=== PATIENT | female | born 1995 | race Caucasian/White ===

== ENCOUNTER 2016-04-01 19:21 | Emergency (ER) | payer OTHER ==
[~2016-04-01] VITALS: Ht 172.7 cm; Wt 49.9 kg
[2016-04-01] MEDS ORDERED: IBUPROFEN 600 MG TABLET PO ONE ×2 (21:00→21:07)
[2016-04-01 23:07] VITALS: BP 124/74
== END 2016-04-01 23:08 | disposition home or self-care (01) ==
LOC: ER 19:23
DX: S13.9XXA Sprain of joints and ligaments of unspecified parts of neck, initial encounter (principal); V43.52XA Car driver injured in collision with other type car in traffic accident, initial encounter; Y93.89 Activity, other specified; Y92.488 Other paved roadways as the place of occurrence of the external cause; Y99.8 Other external cause status
CPT/HCPCS: 71010; 72050; 84703; 99284; A4606; Z7610